=== PATIENT | male | born 1935 | race Native Hawaiian/Other Pacific Islander ===

== ENCOUNTER 2017-11-02 15:00 | Emergency (ER) | payer OTHER ==
[~2017-11-02] VITALS: Ht 165.1 cm; Wt 79.4 kg
[~2017-11-02 15:00] MED LIST: AMANTADINE100 MG PO; AMLO2.5T PO; AZOPT OP; CLARITIN10 MG PO; COMBIGAN0.2 MG/0.5 OP; DOCU100C10 PO; DONE5TAB PO; GABA300C2 PO; HYDR10TA47 PO; LEXAPRO20 MG PO; LORA2INJ21 INJ; LORAZEPAM0.5 MG PO; METO50TA63 PO; NAMENDA5 MG PO; NAPROSYN375 MG PO; OLAN10TA2 PO; RISP50IN IM; TRANSDERM-SC1.5 MG TD; TRAVATAN Z0.004 % OP; TRAZ100T PO; VENTOLIN INH; ZANTAC 75 PO; ZIPR20IN IM; [UNRECOGNIZED DRUG - OTHER] IJ
[2017-11-02 16:10] LABS: PLATELET COUNT 139 K/uL (142-355)
[2017-11-02 16:29] LABS: SODIUM 140 mmol/L (136-145)
[2017-11-02] MEDS ORDERED: METO50TA63 PO (20:31)
[2017-11-02] MEDS ORDERED: FURO20TA67 PO (20:32)
[2017-11-02] MEDS ORDERED: ELIQUIS5 MG PO (20:33)
[2017-11-02] MEDS ORDERED: MEMA10TA2 PO (20:34)
[2017-11-02] MEDS ORDERED: TIMOLOL MAL0.5 % OP (20:35)
[2017-11-02] MEDS ORDERED: ATROPINE SUL1 % OP (20:36)
[2017-11-02] MEDS ORDERED: MAGNSUS68 PO (20:37)
[2017-11-02] MEDS ORDERED: BENZ1TAB43 PO (20:39)
[2017-11-02] MEDS ORDERED: NITR0.4S2 SL (20:39)
[2017-11-02] MEDS ORDERED: NABUMETONE500 MG PO (20:40)
[2017-11-02] MEDS ORDERED: [UNRECOGNIZED DRUG - REMARK] PO (20:40)
[2017-11-02] MEDS ORDERED: PANTOPRAZOLE 40MG TA PO (20:44)
== END 2017-11-02 17:10 | disposition other institution (70) ==
LOC: ED 15:00
PROVIDERS: Family Medicine
DX: Z04.6 Encounter for general psychiatric examination, requested by authority (principal); F20.89 Other schizophrenia
CPT/HCPCS: 36415; 80053; 80320; 80329; 85027; 93005; 99285